=== PATIENT | female | born 1960 | race Caucasian/White ===

== ENCOUNTER 2018-11-12 16:15 | Emergency (ER) | payer BC ==
[2018-11-12 16:39] VITALS: BMI 22.6
--- NOTE | 2018-11-12 16:41 | PDOC ---
Rapid Medical Evaluation Chief Complaint: CVA/TIA Time Seen by Provider: 11/12/18 16:30 Medical Evaluation: Allergies Allergy/AdvReac Type Severity Reaction Status Date / Time No Known Allergies Allergy Verified 11/12/18 16:33 11/12/18 16:39 I have performed a brief in-person evaluation of this patient. The patient presents with a chief complaint of:LUE numbness at 2pm today. Dx w/ TIA recently at hospital in [place] and discharged 2 days ago. Had p/w double vision on the L per pt. States w/u was negative. No focal weakness, DRAKE, dizziness, n/v , CP or SOB Pertinent physical exam findings:stable I have ordered the following:Ines webb called from triage, CTH/labs ordered The patient will proceed to the ED for further evaluation. Discharge Disposition - Diagnosis Numbness - Referrals - Patient Instructions - Post Discharge Activity
[2018-11-12 17:21] LABS: BASO % 0.9 % (0-2.0); EOS % 3.9 % (0-4.5); HEMATOCRIT 35.1 % (32.4-45.2); HEMOGLOBIN 11.9 GM/dL (10.7-15.3); LYMPH % 32.1 % (8-40); MCH 32.6 pg (25.7-33.7); MEAN CELL VOLUME 95.8 fl (80-96); MEAN PLT VOLUME 6.9 fl (7.5-11.1); MONO % 7.4 % (3.8-10.2); NEUT % 55.7 % (42.8-82.8); PLATELET COUNT 180 K/MM3 (134-434); RBC 3.66 M/mm3 (3.60-5.2); RDW 13.3 % (11.6-15.6); WHITE BLOOD COUNT 5.5 K/mm3 (4.0-10.0)
[2018-11-12 17:40] LABS: INR 0.99 (0.83-1.09); PROTHROMBIN TIME (PATIENT) 11.7 SEC (9.7-13.0)
--- NOTE | 2018-11-12 17:46 | PDOC ---
History of Present Illness - General Chief Complaint: CVA/TIA Stated Complaint: NUMBNESS TO LT ARM Time Seen by Provider: 11/12/18 16:30 - History of Present Illness Initial Comments: 11/12/18 17:36 58f with pmh of thalamic stroke on Thursday, November 07, seen at [facility], discharged on the after diagnosis by MRI where she was found to have a left thalamic lesion with symptoms of double vision, now presenting with left arm numbness/cold sensation since 2pm, getting somewhat better, 3h later presenting ot the hospital. No other symptoms, displopia never resolved. Is wearing an eyepatch as she sees well one eye at a time. Has an appointment with Neuro-ophtalmologist next week. During her admission, she saw Neurologists Dr. Anderson and Dr. Lock. Pcp. Dr. Baker 11/12/18 18:13 Past History - Past Medical History Allergies/Adverse Reactions: Allergies Allergy/AdvReac Type Severity Reaction Status Date / Time No Known Allergies Allergy Verified 11/12/18 16:33 Home Medications: Ambulatory Orders Multivitamin PO DAILY 05/13/11 Anemia: No Asthma: No Cancer: No Cardiac Disorders: No CVA: No COPD: No CHF: No Dementia: No Diabetes: No GI Disorders: No Disorders: No HTN: No Hypercholesterolemia: No Liver Disease: No Seizures: No Thyroid Disease: No - Surgical History Abdominal Surgery: No Appendectomy: No Cardiac Surgery: No Cholecystectomy: No Lung Surgery: No Neurologic Surgery: No Orthopedic Surgery: No - Immunization History Immunization Up to Date: Yes - Suicide/Smoking/Psychosocial Hx Smoking History: Never smoked Information on smoking cessation initiated: No Hx Alcohol Use: No Drug/Substance Use Hx: No Substance Use Type: None Hx Substance Use Treatment: No Review of Systems - Review of Systems Able to Perform ROS?: Yes Is the patient limited Grenadian proficient: No Constitutional: No: Symptoms Reported HEENTM: No: Symptoms Reported Respiratory: No: Symptoms reported Cardiac (ROS): No: Symptoms Reported ABD/GI: No: Symptoms Reported : No: Symptoms Reported Musculoskeletal: No: Symptoms Reported Integumentary: No: Symptoms Reported Neurological: Yes: See HPI All Other Systems: Reviewed and Negative *Physical Exam - Vital Signs Last Vital Signs Temp Pulse Resp BP Pulse Ox 98.2 F 74 17 140/89 99 11/12/18 16:33 11/12/18 16:33 11/12/18 16:33 11/12/18 16:33 11/12/18 16:33 - Physical Exam General Appearance: Yes: Nourished, Appropriately Dressed. No: Apparent Distress HEENT: positive: EOMI, JENA, Normal ENT Inspection Respiratory/Chest: positive: Lungs Clear, Normal Breath Sounds. negative: Chest Tender, Respiratory Distress Cardiovascular: positive: Regular Rhythm, Regular Rate, S1, S2 Gastrointestinal/Abdominal: positive: Normal Bowel Sounds, Flat, Soft. negative : Tender Musculoskeletal: positive: Normal Inspection. negative: CVA Tenderness Extremity: positive: Normal Capillary Refill, Normal Inspection, Normal Range of Motion Integumentary: positive: Normal Color, Dry, Warm Neurologic: positive: Fully Oriented, Alert, Normal Mood/Affect, Normal Response , Motor Strength 5/5, Other (diplopia) NIH Stroke Scale - Last Known Well Date/Time & Onset Date Last Known Well: 11/12/18 Time Last Known Well: 14:00 - Initial Evaluation Level of consciousness: Alert Ask patient the month and their age: Answers both correctly Ask patient to open & close eyes; make fist and let go: Obeys both correctly Best gaze (horizontal eye movement): Normal Visual field testing: Partial hemianopia Facial paresis (Show teeth/raise eyebrows/close eyes tight): Normal symmetrical movement Motor Function: Left Arm: Normal Motor Function: Right Arm: Normal (extends arm 90 (or 45) degrees for 10 seconds without drift Motor Function: Left Leg: Normal (extends leg 30 degrees for 5 seconds without drift) Motor Function: Right Leg: Normal (extends leg 30 degrees for 5 seconds without drift) Limb Ataxia: No ataxia Sensory(Use pinprick test arms,legs,trunk,face/side to side): Mild to moderate decrease in sensation Best language (Describe picture, name items, read sentences): No Aphasia Dysarthria (read several words): Normal articulation Extinction and Inattention: No abnormality - Total Score NIH Stroke Scale Score: 2 Critical Care Time/MDM Note - Medical Decision Making Note: 11/12/18 18:46 58F with thalamic stroke on 11/07 presenting with new symptom of left parasthesia. Call [facility] and order set for STROKE. CT head read: There is no discrete infarct within the limitations of CT. No intracranial hemorrhage is noted. There is no extra-axial fluid collection. No obvious mass lesion is seen on noncontrast imaging. There is no definite abnormal attenuation. The ventricles and cisterns appear unremarkable. No calvarial defect is noted. Addendum: Note is made of a small amount of mucosal thickening along the posterior wall of the right sphenoid sinus. Spoke to Dr. Anderson her neurologist who told me about her exam at the time being solely diplopia, but that the sensory changes in the arm could make sense as an exacerbation of the thalamic stroke. Recommended new MRI and comparison with the old MRI which was provided to us on a disc and uploaded to our system. Spoke to Dr. Seaman, neurologist service station attendant who also recommended new MRI and discharging the patient if findings identical. Patient immediately brought to MRI. 11/12/18 19:13 Patient can be discharged home if MRI is unchanged. Patient signed out to Dr. Goldstein *DC/Admit/Observation/Transfer Diagnosis at time of Disposition: Numbness - Referrals - Patient Instructions - Post Discharge Activity
[2018-11-12 17:51] LABS: ALK PHOS 60 U/L (45-117); ANION GAP 6 MMOL/L (8-16); BILIRUBIN,TOTAL 0.4 mg/dL (0.2-1); BLOOD UREA NITROGEN 21.9 mg/dL (7-18); CHLORIDE 99 mmol/L (98-107); CO2 28 mmol/L (21-32); CREATININE 0.8 mg/dL (0.55-1.3); GLUCOSE,RANDOM 91 mg/dL (74-106); POTASSIUM 3.9 mmol/L (3.5-5.1); SGOT/AST 27 U/L (15-37); SGPT/ALT 35 U/L (13-61); SODIUM 133 mmol/L (136-145); TOT PROT 6.8 g/dl (6.4-8.2)
[2018-11-12 18:01] LABS: CHOLESTEROL 178 mg/dL (50-200); HDL CHOLESTEROL 75 mg/dL (40-60); TRIGLYCERIDES 68 mg/dL (0-150)
--- NOTE | 2018-11-12 19:07 | PDOC ---
Documentation entered by Silvana Shah SCRIBE, acting as scribe for Megan Persaud MD. Megan Persaud MD: This documentation has been prepared by the Pablo chase Sammi, SCRIBE, under my direction and personally reviewed by me in its entirety. I confirm that the documentation accurately reflects all work, treatment, procedures, and medical decision making performed by me. Attending Attestation - Resident Resident Name: Arden Mauro - ED Attending Attestation I have performed the following: I have examined & evaluated the patient, The case was reviewed & discussed with the resident, I agree w/resident's findings & plan, Exceptions are as noted - HPI HPI: 11/12/18 17:36 The patient is a 58 year old female who presents to the emergency department for evaluation of new onset of left hand numbness, cold, and tingling since 2pm this afternoon. The patient reports she was evaluated in a hospital in [place] this past weekend for a TIA with symptoms of loss of balance as well as vision changes with discharge 2 days ago. Medical history: none reported Allergies: NKDA - Physicial Exam PE: 11/12/18 19:02 awake alert nad lungs clear bilat heart rrr no mrg abd soft nt nd ext wwp . CN II - XII intact. ocular malalignmnet. strength symmetric, decreased sensation left arm to light touch. otherwise sensation intact. - Medical Decision Making 11/12/18 19:05 58 yo F with h/o recent TIA. diagnosed with thalamic cva on MRI, now c/o acute onset left sided arm numbness and tingling shich she states is new. 11/12/18 19:11 d/w patient nuerologist from last admission. who believes sxs of left arm numbness is exacerbation of old stroke. d/w dr flores chief substation operator recomemnd repeat MRI. if unchanged ok for [place] home. MRI obtained and pending. signed out to oncoming attending dr martin. 11/12/18 19:17 NIH Stroke Scale - Last Known Well Date/Time & Onset Date Last Known Well: 11/12/18 Time Last Known Well: 19:15 - Initial Evaluation Level of consciousness: Alert Ask patient the month and their age: Answers both correctly Ask patient to open & close eyes; make fist and let go: Obeys both correctly Best gaze (horizontal eye movement): Partial gaze palsy Visual field testing: No visual field loss Facial paresis (Show teeth/raise eyebrows/close eyes tight): Normal symmetrical movement Motor Function: Left Arm: Normal Motor Function: Right Arm: Normal (extends arm 90 (or 45) degrees for 10 seconds without drift Motor Function: Left Leg: Normal (extends leg 30 degrees for 5 seconds without drift) Motor Function: Right Leg: Normal (extends leg 30 degrees for 5 seconds without drift) Limb Ataxia: No ataxia Sensory(Use pinprick test arms,legs,trunk,face/side to side): Mild to moderate decrease in sensation Best language (Describe picture, name items, read sentences): No Aphasia Dysarthria (read several words): Normal articulation Extinction and Inattention: No abnormality - Total Score NIH Stroke Scale Score: 2
--- NOTE | 2018-11-12 20:03 | PDOC ---
*Physical Exam - Vital Signs Last Vital Signs Temp Pulse Resp BP Pulse Ox 98.7 F 65 17 133/87 97 11/12/18 19:30 11/12/18 19:30 11/12/18 16:33 11/12/18 19:30 11/12/18 19:30 - Physical Exam Comments: 11/12/18 20:03 GENERAL: Awake, alert, and fully oriented, in no acute distress HEAD: No signs of trauma, normocephalic, atraumatic EYES: PERRLA, EOMI, sclera anicteric, conjunctiva clear ENT: Auricles normal inspection, hearing grossly normal, nares patent, oropharynx clear without exudates. Moist mucosa NECK: Normal ROM, supple, no lymphadenopathy, JVD, or masses LUNGS: No distress, speaks full sentences, clear to auscultation bilaterally HEART: Regular rate and rhythm, normal S1 and S2, no murmurs, rubs or gallops, peripheral pulses normal and equal bilaterally. ABDOMEN: Soft, nontender, normoactive bowel sounds. No guarding, no rebound. No masses EXTREMITIES : Normal inspection, Normal range of motion, no edema. No clubbing or cyanosis. NEUROLOGICAL: Cranial nerves II through XII grossly intact. Normal speech, normal gait, no focal sensorimotor deficits SKIN: Warm, Dry, normal turgor, no rashes or lesions noted ED Treatment Course - LABORATORY CBC & Chemistry Diagram: 11/12/18 17:00 11/12/18 17:00 - ADDITIONAL ORDERS Additional order review: Laboratory Results 11/12/18 11/12/18 11/12/18 17:00 17:00 17:00 PT with INR 11.70 INR 0.99 Sodium Potassium Chloride Carbon Dioxide Anion Gap BUN Creatinine Est GFR (CKD-EPI)AfAm Est GFR (CKD-EPI)NonAf Random Glucose Calcium Total Bilirubin AST ALT Alkaline Phosphatase Creatine Kinase Troponin I Total Protein Albumin Triglycerides 68 Cholesterol 178 Total LDL Cholesterol 80 HDL Cholesterol 75 H Blood Type O POSITIVE Antibody Screen Negative 11/12/18 17:00 PT with INR INR Sodium 133 L Potassium 3.9 Chloride 99 Carbon Dioxide 28 Anion Gap 6 L BUN 21.9 H Creatinine 0.8 Est GFR (CKD-EPI)AfAm 95.52 Est GFR (CKD-EPI)NonAf 82.42 Random Glucose 91 Calcium 9.0 Total Bilirubin 0.4 AST 27 ALT 35 Alkaline Phosphatase 60 Creatine Kinase 120 Troponin I < 0.02 Total Protein 6.8 Albumin 4.0 Triglycerides Cholesterol Total LDL Cholesterol HDL Cholesterol Blood Type Antibody Screen 11/12/18 17:00 RBC 3.66 MCV 95.8 MCHC 34.0 RDW 13.3 MPV 6.9 L Neutrophils % 55.7 Lymphocytes % 32.1 Monocytes % 7.4 Eosinophils % 3.9 Basophils % 0.9 - RADIOLOGY Radiology Studies Ordered: 11/12/18 20:42 EXAM#: TYPE/EXAM: RESULT: [id number] MRI/BRAIN MRI W/O CONTRAST MRI OF THE BRAIN (without contrast) CLINICAL INFORMATION GIVEN: stroke ; numbness The exam consists of sagittal, coronal, and transaxial images obtained utilizing fast spin-echo, fast spin-echo FLAIR, susceptibility weighted and diffusion weighted spin-echo echo - planar pulse sequences. An acute/subacute 0.7 cm left thalamic infarct is seen medially. This finding appears similar in comparison to an MRI study performed at a different facility on 11/08/2018. No definite interval abnormality is identified. There is no extra- axial fluid collection. The ventricles, cisterns and craniocervical junction appear unremarkable. Signal void is seen within the internal carotid arteries and basilar artery consistent with vessel patency. IMPRESSION: Small nonhemorrhagic acute/subacute left thalamic infarct. Reported By: Segundo Bauer MD 11/12/181921 Arden Mauro Technologist: Jesus Jewell Transcribed Date/ Time: 11/12/181921 Superintendent Compressor Stations: Segundo Bauer Printed Date/Time: By: Medical Decision Making - Medical Decision Making 11/12/18 20:03 58 yo F with h/o thalamic storke (11/07/18) with residual diplopia, who p/w left arm parastehsias x 1 day (1400) . Patient endorsed by Dr. Mauro. Vitals wnl , A&Ox3. Dr. mauro spoke to patient neurologist who states that symptoms may be 2/2 previous stroke (11/07/18) CTH unremarkable. Neurologist and Dr. Seaman reccomend new MRI and discharge if unchanged from prior that has been uploaded by Dr. Mauro. Ed Course: 11/12/18 20:18 Laboratory Tests 11/12/18 11/12/18 17:00 17:00 WBC 5.5 Hgb 11.9 Hct 35.1 Plt Count 180 Sodium 133 L Potassium 3.9 BUN 21.9 H Creatinine 0.8 Troponin I < 0.02 11/12/18 20:53 MRI unchanged from prior PT. agrees to f/u with her neurologist, and PMD DR. Amadou Burrell (11/15/18) *DC/Admit/Observation/Transfer Diagnosis at time of Disposition: Numbness, Arm paresthesia, left - Discharge Dispostion Condition at time of disposition: Stable Decision to Admit order: No - Referrals Referrals: Karli Baker MD [Primary Care Provider] - - Patient Instructions Printed Discharge Instructions: DI for Numbness/tingling Additional Instructions: Please return to the emergency department with any new or worsening symptoms or concerns. Please follow up with your neurologist and primary care physician within 72 hours. - Post Discharge Activity
[2018-11-12 20:10] VITALS: BP 120/78; PULSE 66; TEMP 98.4
--- NOTE | 2018-11-13 11:32 | EKG ---
Test Reason : Blood Pressure : / mmHG Vent. Rate : 066 BPM Atrial Rate : 066 BPM P-R Int : 180 ms QRS Dur : 104 ms QT Int : 436 ms P-R-T Axes : 047 071 058 degrees QTc Int : 457 ms NORMAL SINUS RHYTHM NORMAL ECG NO PREVIOUS ECGS AVAILABLE Confirmed by CAESAR KELLY MD ([id number]) on 11/13/2018 11:32:21 AM Referred By: Confirmed By:CAESAR KELLY MD
== END 2018-11-12 21:10 | disposition home or self-care (01) ==
LOC: JER 16:15
DX: R20.0 Anesthesia of skin (principal)
CPT/HCPCS: 36415; 70450-TC; 70551-TC; 80053; 82465; 82550; 83718; 83721; 84478; 84484; 85025; 85610; 86850; 86900; 86901; 93005; 93010; 99284-25